=== PATIENT | male | born 1995 | race Caucasian/White ===

== ENCOUNTER 2023-09-29 19:56 | Emergency (ER) | payer MEDICAID ==
[~2023-09-29] VITALS: Ht 160 cm; Wt 61.2 kg
[2023-09-29 21:43] VITALS: TEMP 98.2
[2023-09-29] MEDS: LIDOCAINE 1%-EPI 1:100,000 50 ML VIAL IJ ONE (22:21)
[2023-09-29] MEDS ORDERED: LIDOCAINE 1%-EPI 1:100,000 20 ML VIAL ONE (22:24)
[2023-09-29] MEDS: LIDOCAINE HCL/PF 1% 30 ML VIAL IJ ONE (22:58)
[2023-09-30] MEDS ORDERED: CEPH500C2 PO (02:21)
[2023-09-30] MEDS: BACI/NEOM/POLY B OINT PKT 1 UDPKT PACKET TP ONE (02:27)
[2023-09-30 03:26] VITALS: BP 129/86; O2SAT 99
== END 2023-09-30 03:27 | disposition home or self-care (01) ==
LOC: ER 19:59
DX: S51.811A Laceration without foreign body of right forearm, initial encounter (principal); W01.0XXA Fall on same level from slipping, tripping and stumbling without subsequent striking against object, initial encounter; Y93.89 Activity, other specified; Y92.89 Other specified places as the place of occurrence of the external cause; Y99.0 Civilian activity done for income or pay
CPT/HCPCS: 12002; 73090; 99283; J3490